=== PATIENT | male | born 1990 | race Caucasian/White ===

== ENCOUNTER 2021-10-06 10:17 | Outpatient (CLI) | payer OTHER, SELFPAY ==
--- NOTE | ~2021-10-06 | US_ITS ---
EXAMINATION: US abdomen complete DATE: 10/06/2021 10:05 INDICATION: Right upper quadrant pain TECHNIQUE: Multiple grayscale and Doppler ultrasound images of the abdomen were obtained. COMPARISON: None available FINDINGS: Bowel gas obscures visualization of the pancreas. The visualized portions of the pancreas a re unremarkable. The liver is normal with normal echogenicity and echotexture. No surface nodularity. Normal hepatopetal flow in the main portal vein. The gallbladder is normal with no abnormal wall thi ckening, pericholecystic fluid or stones. The normal common bile duct measures 3 mm. There was no son ographic West sign. The visualized portions of the aorta and inferior vena cava are normal. The right kidney measures 9.1 x 4.5 x 3.7 cm. The left kidney measures 10.2 x 4.6 x 5.1 cm. The kidne ys demonstrate normal parenchymal echogenicity. There is no hydronephrosis. The spleen is normal in a ppearance and measures 9.5 cm. IMPRESSION: 1. No sonographic correlate for the patient's symptoms. Reviewed, dictated and finalized at location A.
[2021-10-06 11:04] LABS: Basophils Absolute Auto 0.1 K/mm3 (0.0-0.1); Basophils Percent Auto 1.1 % (0.2-1.2); Eosinophils Absolute Auto 0.4 K/mm3 (0-0.3); Eosinophils Percent Auto 8.8 % (0-4.4); Hematocrit 43.1 % (42.0-52.0); Hemoglobin 14.6 g/dL (14.0-18.0); Immature Granulocyte Absolute 0.01 K/mm3 (0.00-0.031); Immature Granulocyte Percent A 0.2 % (0-0.5); Lymphocytes Percent Auto 31.5 % (18.3-44.2); Mean Corpuscular HGB Conc 33.9 g/dl (32-36); Mean Corpuscular Hemoglobin 29.4 pg (26-34); Mean Corpuscular Volume 86.9 fl (80-100); Mean Platelet Volume 8.8 fl (7.4-10.4); Monocytes Absolute Auto 0.4 K/mm3 (0.1-0.6); Monocytes Percent Auto 9.9 % (2.6-8.5); Neutrophils Absolute Auto 2.2 K/mm3 (1.3-6.7); Neutrophils Percent Auto 48.5 % (45.5-73.1); Platelet Count Result 298 k/mm3 (150-375); Red Blood Count 4.96 M/mm3 (4.6-6.20); White Blood Count 4.4 K/mm3 (4.5-10.0)
[2021-10-06 11:16] LABS: Alanine Aminotransferase 36 U/L (4-50); Albumin Level 4.8 g/dL (3.5-5.1); Alkaline Phosphatase 96 U/L (38-126); Amylase 107 U/L (30-110); Anion Gap 5 mmol/L (8-16); Aspartate Amino Transferase 38 U/L (17-59); Blood Urea Nitrogen 13 mg/dL (9-20); Calcium 9.6 mg/dL (8.4-10.2); Carbon Dioxide 31 mmol/L (22-30); Chloride 104 mmol/L (98-107); Cholesterol 133 mg/dL (0-200); Estimated Glomerular Filt Rate > 60; Glucose 95 mg/dL (65-110); HDL Direct 54 mg/dL; Lipase 134 U/L (23-300); Potassium 4.3 mmol/L (3.4-5.0); Sodium 140 mmol/L (137-145); Triglycerides 46 mg/dL (<150)
[2021-10-06 11:28] LABS: LDL Cholesterol Direct 51 mg/dL
[2021-10-06 21:08] LABS: Free T4 Free Thyroxine Reflex 1.01 ng/dL (0.78-2.19)
[2021-10-06 22:19] LABS: Total Triiodothyronine (T3) 1.49 NG/ML (0.97-1.69)
[2021-10-12 14:07] LABS: Gliadin AB, IgG <1.0 U/mL (<15.0); Reticulin IgA Negative (Negative); TTG IGA AB <1.0 U/mL (<15.0)
== END 2021-10-06 10:18 | disposition home or self-care (01) ==
PROVIDERS: PCP Family Medicine; Visit Provider Family Medicine
DX: R10.11 Right upper quadrant pain (principal); F41.9 Anxiety disorder, unspecified; Z13.220 Encounter for screening for lipoid disorders; R19.7 Diarrhea, unspecified
CPT/HCPCS: 36415; 76700; 80053; 80061; 82150; 83516; 83690; 84439; 84443; 84480; 85025; 86255

== ENCOUNTER 2022-04-01 12:30 | Outpatient (RCR) | payer OTHER, SELFPAY ==
--- NOTE | 2022-02-21 14:55 | PTOPEVAL1 ---
Assessment and note entered by Anette Arce, PT Evaluation Information Assessment Status Evaluation Diagnosis back pain, right hip pain Onset 03/2021 Reported Pain Level Pain Score 1: Self Report Assessment PT Clinical Summary Pt presents w/ c/o R lower back pain, R hip pain, R sided groin and testicular pain at times persistent from 03/2021 without traumatic incident . Pt reports increases in symptoms w/ weight bearing including walking and stairs, and with lifting. Pain reduces with laying flat on his back . Evaluation shows R inominate elevated, RLE short in supine, and further shortening with supine>sit testing as well as decreased glute strength R, (+ ) FADDIR RLE. Reports and testing highly suggestive of upslip of R inominate and likely R anterior torsion of R inominate causing pain, referred symptoms, and over time decreases in right hip strength. Possible RLE length discrepancy as well. Today pt was educated on diagnosis, and provided with initial HEP to assist in realignment of pelvis. Pt will greatly benefit from physical therapy to address alignment issues, pain, strength, and thus function for work activities. Plan of Care Interventions Check Out for Orthotic/Pr,Electrical Stimulation, Hot Pack/Cold Pack,Manual Therapy,Neuro Re- education,Patient/Caregiver Educati,Therapeutic Activities,Therapeutic Exercise,Self-Care/Home Management,Ultrasound,Other Other Interventions taping PT Services Indicated Yes Treatment Frequency and 2x 6 weeks Duration These treatments will address the objective and functional deficits as defined above. The patient will be advanced safely and appropriately in order for the patient to progress towards his/her prior level of function. Additional exercises will be introduced and as well as a comprehensive home exercise program upon discharge, if needed, ?to ensure carryover of functional gains achieved in the clinic. This treatment plan has been reviewed and agreement upon by the patient.
--- NOTE | 2022-04-04 08:03 | BUPTOPDC ---
Assessment and note entered by Anette Arce, PT Discharge Information Assessment Status Discharge Diagnosis back pain, right hip pain Onset 03/2021 Subjective Information Pain in front of hip and into groin has resolved Pain in right low back and hip is less and less often Reported Pain Level Pain Score 2: Self Report Additional Pain Score Comments 90% improved Assessment PT Clinical Summary Pt reports pain is 90% improved with complete resolution of right groin pain. Pain is now centralized to R SIJ and glute area at worst rating a 3/10 and with increased times of 0/10. Pt also demo's full ROM without pain, and greatly improved lumbopelvic core strength and stability. SI belt order has been submitted to local [employer] company with pt informed of benefit of use at work and for high level activities. Pt's HEP and progress was finalized, and pt was educated on return to therapy if needed. Thus patient is being discharged for current POC. Plan of Care PT Services Indicated No Treatment Frequency and Discharge Duration
== END 2022-04-15 10:10 | disposition home or self-care (01) ==
LOC: ANHHIPT 12:30
PROVIDERS: PCP Family Medicine; Visit Provider Family Medicine
DX: M25.551 Pain in right hip (principal); M54.50 Low back pain, unspecified
CPT/HCPCS: 97014; 97110; 97112; 97140; 97161; 97530; G0283

== ENCOUNTER 2024-04-29 10:00 | Outpatient (RCR) | payer OTHER, SELFPAY ==
--- NOTE | 2024-02-08 16:56 | PTOPEVAL1 ---
Assessment and note entered by Anette Arce, PT Evaluation Information Assessment Status Evaluation Onset 4 years Subjective Information Began when was 16 when had a severe inner ear infection. Prior to this could ride bikes and rollercoasters and now is unable to ride roller coaster. Pt states was so dizzy actually had to go to the hospital and get IV antibiotics about 4 years ago, has had dizzy spells that would be bad enough to keep him from going to work. Reports has been getting progressively worse. Sinuses flaring up will cause dizziness, but also other things like getting too hot. Notes is having more frequent dizzy spells, and usually will only last a day but last week had a three day spell. Has not seen an ENT because of insurance issues. But hasn't looked into this recently. The eye dizziness comes and goes, not very often . Baseline has slight dizzy sensation. Will note with flare ups notices eyes won't focus well notices with reading and has to wait to refocus. Also hasn't been to the eye doctor in a while either. Does not typically have migraines but sometimes has headache across the frontal area with his dizziness Reported Pain Level Pain Score 0: Self Report Assessment PT Clinical Summary Pt presents with reported progressing dizziness. Description suggestive of flare ups with BPPV but when not in a BPPV flare up has constant low level dizziness sensation. Pt reports history of severe ear infection which he was on IV antibiotics for when he was 16 and reports this is when he feels his issues began. States has progressed since then in frequency however really noticed increased frequency in the last 4 years. Evaluation pt reports multiple testes cause increased symptoms without nystagmus. Most intense symptoms with roll testing and with seated torsion test, reduction of symptoms wit cervical traction. 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 Pt would benefit from physical therapy to address deficits, improve symptoms, and improve function for maximal active lifestyle. Plan of Care Interventions Electrical Stimulation,Hot Pack/Cold Pack,Manual Therapy,Mechanical Traction,Neuro Re-education, Therapeutic Activities,Therapeutic Exercise,Self- Care/Home Management,Ultrasound,Other Other Interventions taping PT Services Indicated Yes Treatment Frequency and 2x weekly x 16 visits Duration These treatments will address the objective and functional deficits as defined above. The patient will be advanced safely and appropriately in order for the patient to progress towards his/her prior level of function. Additional exercises will be introduced and as well as a comprehensive home exercise program upon discharge, if needed, ?to ensure carryover of functional gains achieved in the clinic. This treatment plan has been reviewed and agreement upon by the patient.
--- NOTE | 2024-02-08 16:56 | OPREHPOC ---
Outpatient Therapy Plan of Care This is a Multidisciplinary Plan of Care that may contain components documented by all disciplines (PT, OT, and ST.) PT Goal 1 Goal / Goal Update Pt will be independent in HEP Pt will verbalize understanding of diagnosis and prognosis Target Visit 8 PT Problem 2 PT Problem #2 Impaired Vestibular Syste PT Goal 1 Goal / Goal Update Pt will report 0/10 symptoms sitting still Target Visit 8 PT Goal 2 Goal / Goal Update Pt will report resolution of symptoms with movement Target Visit 16 PT Problem 3 PT Problem #3 Impaired Endurance PT Goal 1 Goal / Goal Update Pt will demo appropriate sitting postures for maximal cervical support and improvement of muscle tone. Target Visit 8
--- NOTE | 2024-02-23 09:43 | PCPTNOTE ---
Patient called an hour before appt time & cancelled scheduled appointment this date due to being called into work
--- NOTE | 2024-03-07 15:33 | PCPTNOTE ---
Pt called at 1:03 pm to cancel is 3:00 pm appt due to being called into work.
--- NOTE | 2024-04-04 15:07 | PCPTNOTE ---
Patient called & cancelled scheduled appointment this date due to work
--- NOTE | 2024-04-08 16:31 | PTOPPROG ---
Assessment and note entered by Anette Arce, PT Evaluation Information Assessment Status Progress Onset 4 years Subjective Information Self-perceived improvement: 15% improvement. Still has sinus issues and this causes dizziness. Does report doesn't always get his exercises done as well as he thinks he should. Sometimes forgets. Pt reports there was one day that dizziness was bad enough if he had had to work wouldn't have been able to go. These intense episodes are less than when started therapy. Does have some headaches on back/sides of head. These are also less frequent. Reports has had less pain in the neck area, but upper back is still an issue. Doesn't feel is as bad as it was previously but also has been slow at work and hasn't really been tested. yesterday's upper back pain, he did some stretches , used a tennis ball for trigger point release and the pain subsided for the most part . Does notice gets cramping in the upper back and ribs occasionally but not severe. Pt is also noticing is more aware of posture in core and pelvic area as well. Assessment PT Clinical Summary Pt has attended therapy consistently for dizziness . His vestibular testing shows improvement, his posture is improved, along with cervical and thoracic discomfort. He has not plateaued and reports increased dizziness today but feels this is related to sinuses and weather. Pt will benefit from continued therapy to reach maximal benefit and teach/empower patient to maintain progress independently upon completion of therapy. Plan of Care Interventions Electrical Stimulation,Hot Pack/Cold Pack,Manual Therapy,Mechanical Traction,Neuro Re-education, Therapeutic Activities,Therapeutic Exercise,Self- Care/Home Management,Ultrasound,Other Other Interventions taping PT Services Indicated Yes Treatment Frequency and Cont POC 1-2x weekly x 7 visits Duration These treatments will address the objective and functional deficits as defined above. The patient will be advanced safely and appropriately in order for the patient to progress towards his/her prior level of function. Additional exercises will be introduced and as well as a comprehensive home exercise program upon discharge, if needed, ?to ensure carryover of functional gains achieved in the clinic. This treatment plan has been reviewed and agreement upon by the patient.
== END 2024-05-06 15:20 | disposition still patient (30) ==
LOC: ANHHIPT 10:00
PROVIDERS: PCP Nurse Practitioner Family; Visit Provider Nurse Practitioner Family
DX: H81.10 Benign paroxysmal vertigo, unspecified ear (principal)
CPT/HCPCS: 97012; 97014; 97032; 97035; 97110; 97112; 97140; 97162; 97750; G0283

== ENCOUNTER 2024-05-28 08:06 | Outpatient (RCR) | payer OTHER, SELFPAY ==
--- NOTE | 2024-05-06 15:24 | PCPTNOTE ---
The treatment documented on this account is a continuation of the treatment documented on visit number [id number]. Please see documentation on both accounts to view progress. The Plan of Care has been transitioned and updated within the new V#. I have addressed and agree with the discipline specific Problems, Interventions, and Goals for the current certification period. Completed interventions, outcomes, and problems have been marked as Inactive to facilitate the copying of the Care plan routine for recurring accounts.
--- NOTE | 2024-05-08 09:05 | PCPTNOTE ---
Patient called & cancelled scheduled appointment this date wihtout reason given.
--- NOTE | 2024-07-02 16:41 | PTOPDC ---
Assessment and note entered by Dayami Villarreal, PT Discharge Information Assessment Status Discharge - Pt Not Present Onset 4 years Subjective Information Self-perceived improvement: 15% improvement. Still has sinus issues and this causes dizziness. Does report doesn't always get his exercises done as well as he thinks he should. Sometimes forgets. Pt reports there was one day that dizziness was bad enough if he had had to work wouldn't have been able to go. These intense episodes are less than when started therapy. Does have some headaches on back/sides of head. These are also less frequent. Reports has had less pain in the neck area, but upper back is still an issue. Doesn't feel is as bad as it was previously but also has been slow at work and hasn't really been tested. yesterday's upper back pain, he did some stretches , used a tennis ball for trigger point release and the pain subsided for the most part . Does notice gets cramping in the upper back and ribs occasionally but not severe. Pt is also noticing is more aware of posture in core and pelvic area as well. Assessment PT Clinical Summary Pt received 10 treatment sessions with good gains, however he stopped showing up for remaining 2 appointments, several attempts made to contact, unable to get a hold of the patient. Pt is discharged from current skilled PT program due to non-attendance at this time. Plan of Care PT Services Indicated No
== END 2024-07-03 08:36 | disposition home or self-care (01) ==
LOC: ANHHIPT 08:06
PROVIDERS: PCP Nurse Practitioner Family; Visit Provider Nurse Practitioner Family
DX: H81.10 Benign paroxysmal vertigo, unspecified ear (principal)
CPT/HCPCS: 97035; 97110; 97140